=== PATIENT | female | born 1970 | race Caucasian/White ===

== ENCOUNTER 2016-11-26 19:26 | Observation (INO) | payer OTHER ==
--- NOTE | 2016-11-26 19:44 | C.PDOC ---
History Of Present Illness 46F c/o right side occipital headache constant for 2 weeks, worse w light. became worse on sunday. yesterday noted drooling from left side of mouth. today around 1pm noted numbness sensation on lips, more on the left side and then later on numbness sensation around both eyes more on the left. her brother had a stroke 1 month ago. Time Seen by Provider: 11/26/16 19:42 Chief Complaint (Nursing): Weakness/Neurological Deficit Past Medical History Vital Signs: Last Vital Signs Temp 98.2 F 11/26/16 19:42 Pulse 78 11/26/16 19:42 Resp 18 11/26/16 19:42 BP 143/96 H 11/26/16 19:42 Pulse Ox 100 11/26/16 19:42 Family History: States: Stroke (brother) - Social History Hx Alcohol Use: No Hx Substance Use: No - Immunization History Hx Tetanus Toxoid Vaccination: No Hx Influenza Vaccination: No Hx Pneumococcal Vaccination: No Review Of Systems Constitutional: Negative for: Fever, Chills Eyes: Negative for: Vision Change Cardiovascular: Negative for: Chest Pain Respiratory: Negative for: Shortness of Breath Gastrointestinal: Negative for: Nausea, Vomiting, Abdominal Pain Genitourinary: Negative for: Dysuria Musculoskeletal: Negative for: Neck Pain Neurological: Positive for: Numbness, Headache. Negative for: Weakness, Altered Mental Status Physical Exam - Physical Exam Appears: Well, Non-toxic, No Acute Distress Skin: Warm, Dry Head: Atraumatic Eye(s): bilateral: PERRL, EOMI Oral Mucosa: Moist Neck: Normal ROM Cardiovascular: Rhythm Regular, No Murmur Respiratory: Normal Breath Sounds, No Decreased Breath Sounds Extremity: No Swelling Neurological/Psych: Oriented x3, Normal Cranial Nerves, No Cerebellar Signs, Normal Motor, Normal Sensation, Other (no focal deficits) ED Course And Treatment - Laboratory Results Result Diagrams: 11/26/16 20:16 11/26/16 20:16 NIHSS Stroke Scale - Date/Time Evaluation Performed Date Performed: 11/26/16 Time Performed: 19:45 - How Severe is the Stoke Level of Consciousness: 0=Alert LOC to Questions: 0=Both comments correct LOC to commands: 0=Obeys both correctly Best Gaze: 0=Normal Visual: 0=No visual loss Facial: 0=Normal Motor Arm - Left: 0=No drift Motor Arm - Right: 0=No drift Motor Leg - Left: 0=No drift Motor Leg - Right: 0=No drift Limb Ataxia: 0=Absent Sensory: 0=Normal Best Language: 0=No aphasia Dysarthia: 0=Normal articulation Extinction & Inattention (Neglect): 0=Normal, no object Score: 0 Severity Of Stroke: 0= No Stroke rTPA Inclusion/Exclusion - Refusal of Treatment Patient Refused Treatment: No - Inclusion Criteria for Altepase Patient is 18 years or Older: Yes The Clinical Diagnosis of Ischemic Stroke That is Causing a Potentially Disabling Neurological Deficit: No Time of Onset is Well Established to be Less Than 270 Minute Before Treatment Would Begin: No Risk/Benefit Discussed With Patient/Family Member Present: No Medical Decision Making Medical Decision Making: ecg- nsr 70, nl aixs, no int, no acute ischemia EXAM: CT Head Without Intravenous Contrast CLINICAL HISTORY: 46 years old, female; Signs and symptoms; Numbness / parasthesia; Left; Additional info: Headache numbness TECHNIQUE: Axial computed tomography images of the head/brain without intravenous contrast. This CT exam was performed using one or more of the following dose reduction techniques: automated exposure control, adjustment of the mA and/or kV according to patient size, and/or use of iterative reconstruction technique. COMPARISON: No relevant prior studies available. FINDINGS: Brain: There is moderate diffuse cerebral atrophy present. The brain is otherwise unremarkable. Normal khalil-white matter differentiation is present, without acute hemorrhage, or mass. Ventricles: There are benign calcifications of the choroid plexus. Bones/joints: Unremarkable. No acute fracture. Soft tissues: Unremarkable. Sinuses: Small retention cyst present within the left maxillary sinus. Mastoid air cells: Unremarkable as visualized. No mastoid effusion. IMPRESSION: There is no acute intracranial process is seen. Mild atrophy which is slightly out of proportion to patient's age. Disposition - Disposition Disposition: HOSPITALIZED Disposition Time: 20:56 Condition: STABLE - Clinical Impression Clinical Impression: Left facial numbness
[2016-11-26] MEDS ORDERED: DiphenhydrAMINE 50 mg/ml Inj IVP STA (19:52)
[2016-11-26] MEDS ORDERED: DiphenhydrAMINE 50 mg/ml Inj ONE (20:15)
[2016-11-26 20:29] LABS: BASO # 0.1 K/uL (0.0-0.2); BASO % 0.5 % (0.0-2.0); CHLORIDE 102 mmol/L (98-107); EOS # 0.4 K/uL (0.0-0.7); EOS % 3.9 % (0.0-4.0); HEMATOCRIT 39.2 % (34.0-47.0); LYMPH # 2.5 K/uL (1.0-4.3); LYMPH % 26.2 % (20.0-40.0); MEAN CELL VOLUME 82.9 fL (81.0-99.0); MEAN CORPUSCULAR HEMOGLOBIN 27.3 pg (27.0-31.0); MEAN PLATELET VOLUME 8.4 fL (7.2-11.7); MONO # 0.6 K/uL (0.0-0.8); MONO % 6.1 % (0.0-10.0); NRBC % 0.1 % (0.0-2.0); POTASSIUM 3.4 mmol/L (3.6-5.2); RED CELL DISTRIBUTION WIDTH 14.9 % (11.5-14.5); SODIUM 138 mmol/L (132-148); WHITE BLOOD COUNT 9.5 K/uL (4.8-10.8)
[2016-11-26 20:31] LABS: ALB/GLOB RATIO 1.2 (1.0-2.1); ALKALINE PHOSPHATASE 117 U/L (38-126); AST/SGOT 25 U/L (14-36); BILIRUBIN,TOTAL 0.6 mg/dL (0.2-1.3); BLOOD UREA NITROGEN 14 mg/dL (7-17); CARBON DIOXIDE 26 mmol/L (22-30); CHOLESTEROL 200 mg/dL (0-199); GFR AFRICAN-AMERICAN > 60; TOTAL PROTEIN 7.3 g/dL (6.3-8.3)
[2016-11-26 20:32] LABS: ALT/SGPT 38 U/L (9-52); GLUCOSE,RANDOM 101 mg/dL (65-105)
[2016-11-26 20:34] LABS: URINE BACTERIA RARE (<OCC); URINE BILIRUBIN NEGATIVE (NEGATIVE); URINE BLOOD NEGATIVE (NEGATIVE); URINE COLOR Straw (YELLOW); URINE GLUCOSE (UA) NORMAL (Normal); URINE KETONE NEGATIVE (NEGATIVE); URINE LEUKOCYTE ESTERASE 1+ Leu/uL (Negative); URINE PROTEIN NEGATIVE (NEGATIVE); URINE UROBILINOGEN NORMAL mg/dL (0.2-1.0); WBC URINE 1 /hpf (0-5)
[2016-11-26 20:36] LABS: INR 0.9
[2016-11-26 20:49] LABS: CALCIUM 7.7 mg/dl (8.6-10.4)
--- NOTE | 2016-11-27 08:23 | CT ---
PROCEDURE: CT HEAD WITHOUT CONTRAST. HISTORY: headache numbness COMPARISON: None available. TECHNIQUE: Axial computed tomography images were obtained through the head/brain without intravenous contrast. Radiation dose: Total exam DLP = 869.92 mGy-cm. This CT exam was performed using one or more of the following dose reduction techniques: Automated exposure control, adjustment of the mA and/or kV according to patient size, and/or use of iterative reconstruction technique. FINDINGS: HEMORRHAGE: No intracranial hemorrhage. BRAIN: No mass effect or edema. Mild frontal atrophy, slightly disproportionate to patient age. No evidence of acute infarct. VENTRICLES: Unremarkable. No hydrocephalus. CALVARIUM: Unremarkable. PARANASAL SINUSES: Left maxillary retention cyst/polyp. MASTOID AIR CELLS: Unremarkable as visualized. No inflammatory changes. OTHER FINDINGS: None. IMPRESSION: No intracranial mass, hemorrhage or evidence of acute infarct. Mild frontal atrophy disproportionate to patient age. Left maxillary retention cyst/polyp. Preliminary interpretation of this examination was reported by [facility] at 8:11 p.m. on 11/26/2016. There is concurrence of this report with the preliminary interpretation.
--- NOTE | 2016-11-27 08:36 | CP.PCM.HP ---
History of Present Illness - History of Present Illness History of Present Illness: 46-year-old female patient presented to the ER with complaint of right-sided occipital headache constant for 2 weeks, worse with light. Became worse on Sunday. Yesterday notes drooling from left side of mouth. Today around 1 PM noted numbness sensation all lips, more on the left side and the O numbness sensation on both eyes on the left. Her brother had a stroke 1 month ago. Present on Admission - Present on Admission Any Indicators Present on Admission: No Past Patient History - Past Social History Smoking Status: Never Smoked - PSYCHIATRIC Hx Substance Use: No Meds Home Medications: Home Medication List Medication Instructions Recorded Confirmed Type Acetaminophen [Tylenol 325mg tab] 650 mg PO Q6 PRN tab 11/28/16 Rx Methylprednisolone [Medrol Dose 4 mg PO DAILY #21 mg 11/28/16 Rx Pack (21 tabs)] Rosuvastatin Calcium [Crestor] 10 mg PO HS tab 11/28/16 Rx Valacyclovir HCl [Valacyclovir] 500 mg PO BID 14 Days 11/28/16 Rx Allergies/Adverse Reactions: Allergies Allergy/AdvReac Type Severity Reaction Status Date / Time No Known Allergies Allergy Verified 11/26/16 19:46 Physical Exam - Constitutional Appears: Well - Head Exam Head Exam: ATRAUMATIC, NORMAL INSPECTION, NORMOCEPHALIC - Eye Exam Eye Exam: EOMI, Normal appearance, PERRL Pupil Exam: NORMAL ACCOMODATION, PERRL - ENT Exam ENT Exam: Mucous Membranes Moist, Normal Exam - Neck Exam Neck exam: Positive for: Normal Inspection - Respiratory Exam Respiratory Exam: Decreased Breath Sounds - Cardiovascular Exam Cardiovascular Exam: REGULAR RHYTHM, +S1, +S2 - GI/Abdominal Exam GI & Abdominal Exam: Diminished Bowel Sounds, Soft - Rectal Exam Rectal Exam: Deferred Results - Vital Signs Recent Vital Signs: Last Vital Signs Temp 98.1 F 11/27/16 05:21 Pulse 64 11/27/16 05:21 Resp 16 11/27/16 05:21 BP 108/68 11/27/16 05:21 Pulse Ox 96 11/27/16 05:21 - Labs Result Diagrams: 11/28/16 13:51 11/28/16 13:51 Assessment & Plan (1) Left facial numbness Status: Acute (2) Otitis externa of left ear Status: Acute - Assessment and Plan (Free Text) Plan: protonix lovenox asp and cresotr neur owrk upas per dr. darling
[2016-11-27] MEDS ORDERED: Potassium Chloride 10 mEq ER Tab PO SCH (08:45)
--- NOTE | 2016-11-27 08:53 | RAD ---
HISTORY: numbness COMPARISON: No prior. FINDINGS: LUNGS: No active pulmonary disease. PLEURA: No significant pleural effusion identified, no pneumothorax apparent. CARDIOVASCULAR: Normal. OSSEOUS STRUCTURES: No significant abnormalities. VISUALIZED UPPER ABDOMEN: Normal. OTHER FINDINGS: None. IMPRESSION: No active disease.
[2016-11-27] MEDS ORDERED: Gadodiamide 287 MG/ML VIAL (15ML) IV ONE (10:51)
[2016-11-27] MEDS: Pantoprazole 40 mg EC Tab PO SCH (11:45)
[2016-11-27] MEDS: Enoxaparin 40 mg Syringe SC SCH (11:45)
--- NOTE | 2016-11-27 12:50 | MRI ---
PROCEDURE: MRI BRAIN WITH AND WITHOUT CONTRAST HISTORY: LEFT FACIAL NUMBNESS COMPARISON: None. TECHNIQUE: Multiplanar, multisequence MR images of the brain were obtained with and without intravenous contrast enhancement. FINDINGS: HEMORRHAGE: None DWI: No evidence of an acute or early subacute infarction. BRAIN PARENCHYMA: No mass,mass effect or edema. There is a small nonspecific focus hyperintense T2 and FLAIR signal seen at the right frontal lobe image 6 series 6 may represent chronic microvascular ischemic disease. ENHANCEMENT: No abnormal intracranial enhancement. VENTRICLES: Unremarkable. No hydrocephalus. CRANIUM: Unremarkable. ORBITS: Grossly unremarkable. PARANASAL SINUSES/MASTOIDS: 2.8 x 1.6 centimeter mucosal retention cyst at the left maxillary sinus. VASCULAR SYSTEM: Skull base flow voids intact. OTHER FINDINGS: None . IMPRESSION: No evidence of acute infarct. No evidence of mass lesion abnormal enhancement mass effect or midline shift.
--- NOTE | 2016-11-27 14:31 | CARD ---
APPROVED REPORT EKG Measurement Heart [id number] <Conclusion> Normal sinus rhythm Normal ECG
[2016-11-27 16:22] VITALS: RESP 20
[2016-11-28] MEDS ORDERED: Potassium Chloride 20 mEq ER Tab PO SCH (08:00)
[2016-11-28] MEDS: Pantoprazole 40 mg EC Tab PO SCH (09:34)
[2016-11-28] MEDS: Enoxaparin 40 mg Syringe SC SCH (09:34)
--- NOTE | 2016-11-28 11:42 | CP.PCM.PN ---
Subjective - Date & Time of Evaluation Date of Evaluation: 11/28/16 Time of Evaluation: 10:00 - Subjective Subjective: clinically same Objective - Vital Signs/Intake and Output Vital Signs (last 24 hours): Temp Pulse Resp BP Pulse Ox 97.7 F 68 20 136/79 98 11/28/16 08:08 11/28/16 08:08 11/28/16 08:08 11/28/16 08:08 11/28/16 08:08 - Medications Medications: Current Medications Acetaminophen (Tylenol 325mg Tab) 650 mg PO Q6 PRN PRN Reason: Pain, moderate (4-7) Last Admin: 11/28/16 09:33 Dose: 650 mg Aspirin (Aspirin) 325 mg PO DAILY [facility] Last Admin: 11/28/16 09:34 Dose: 325 mg Enoxaparin Sodium (Lovenox) 40 mg SC DAILY [facility] Last Admin: 11/28/16 09:34 Dose: 40 mg Pantoprazole Sodium (Protonix Ec Tab) 40 mg PO DAILY [facility] Last Admin: 11/28/16 09:34 Dose: 40 mg Potassium Chloride (K-Dur 20 Meq Er Tab) 40 meq PO BRK [facility] Last Admin: 11/28/16 08:47 Dose: 40 meq Rosuvastatin Calcium (Crestor) 10 mg PO HS ROJAS Temazepam (Restoril) 15 mg PO HS PRN PRN Reason: Insomnia Last Admin: 11/27/16 22:28 Dose: 15 mg Valacyclovir HCl (Valtrex) 500 mg PO BID [facility] Stop: 12/12/16 21:00 Last Admin: 11/28/16 09:34 Dose: 500 mg - Labs Labs: PT 10.0 SECONDS (9.7-12.2) 11/26/16 20:16 INR 0.9 11/26/16 20:16 APTT 30 SECONDS (21-34) 11/26/16 20:16 - Constitutional Appears: Well - Head Exam Head Exam: ATRAUMATIC, NORMAL INSPECTION, NORMOCEPHALIC - Eye Exam Eye Exam: EOMI, Normal appearance, PERRL Pupil Exam: NORMAL ACCOMODATION, PERRL - ENT Exam ENT Exam: Mucous Membranes Moist, Normal Exam - Neck Exam Neck Exam: Full ROM, Normal Inspection. absent: Lymphadenopathy - Respiratory Exam Respiratory Exam: Decreased Breath Sounds - Cardiovascular Exam Cardiovascular Exam: REGULAR RHYTHM, +S1, +S2 - GI/Abdominal Exam GI & Abdominal Exam: Soft, Diminished Bowel Sounds - Rectal Exam Rectal Exam: Deferred Assessment and Plan (1) Left facial numbness Status: Acute (2) Otitis externa of left ear Status: Acute - Assessment and Plan (Free Text) Plan: CT head negative MRI head negative Patient can be discharged today Continue Medrol, Crestor, antiviral Follow-up with me and Dr. Jacques the office in 3-5 days
[2016-11-28 13:57] LABS: BASO # 0.1 K/uL (0.0-0.2); BASO % 0.6 % (0.0-2.0); EOS # 0.2 K/uL (0.0-0.7); EOS % 2.2 % (0.0-4.0); HEMATOCRIT 40.2 % (34.0-47.0); LYMPH # 2.7 K/uL (1.0-4.3); LYMPH % 25.8 % (20.0-40.0); MEAN CELL VOLUME 82.1 fL (81.0-99.0); MEAN CORPUSCULAR HEMOGLOBIN 27.6 pg (27.0-31.0); MEAN CORPUSCULAR HGB CONC 33.6 g/dL (33.0-37.0); MEAN PLATELET VOLUME 8.4 fL (7.2-11.7); MONO # 0.6 K/uL (0.0-0.8); MONO % 5.8 % (0.0-10.0); RED CELL DISTRIBUTION WIDTH 14.9 % (11.5-14.5); WHITE BLOOD COUNT 10.5 K/uL (4.8-10.8)
[2016-11-28 14:14] LABS: CHLORIDE 102 mmol/L (98-107); SODIUM 136 mmol/L (132-148)
[2016-11-28 14:15] LABS: POTASSIUM 3.9 mmol/L (3.6-5.2)
[2016-11-28 14:17] LABS: ALB/GLOB RATIO 1.2 (1.0-2.1); ALKALINE PHOSPHATASE 108 U/L (38-126); ALT/SGPT 49 U/L (9-52); AST/SGOT 33 U/L (14-36); BILIRUBIN,TOTAL 0.9 mg/dL (0.2-1.3); BLOOD UREA NITROGEN 10 mg/dL (7-17); CARBON DIOXIDE 25 mmol/L (22-30); GFR AFRICAN-AMERICAN > 60; GLUCOSE,RANDOM 89 mg/dL (65-105); TOTAL PROTEIN 7.1 g/dL (6.3-8.3)
[2016-11-28 14:18] LABS: CALCIUM 8.4 mg/dl (8.6-10.4)
[2016-11-28 17:17] VITALS: BP 136/88; PULSE 77; TEMP 97.4; O2SAT 97
--- NOTE | 2016-11-28 17:19 | CP.PCM.PN ---
Subjective - Date & Time of Evaluation Date of Evaluation: 11/28/16 Time of Evaluation: 17:19 - Subjective Subjective: 46 Y/O FEMALE SEEN AND EXAMINED BY DR Yarely CUNHA TODAY ADMITTED FOR OCCIPITAL HEADACHE FOR 2 WEEKS, LEFT SIDE OF NUMBNESS CT HEAD - NEGATIVE, MRI HEAD- NEGATIVE PT CLEARED FOR D/C BY DR CUNHA AND DR CARMICHAEL MEDROL DOSE PACK, CRESTOR, AND ANTIVIRAL RX PER DR CARMICHAEL FOLLOW UP WITH DR Yarely CUNHA IN THE OFFICE IN 3-5 DAYS FOLLOW UP WITH DR CARMICHAEL IN THE OFFICE IN 3-5 DAYS Objective - Vital Signs/Intake and Output Vital Signs (last 24 hours): Temp Pulse Resp BP Pulse Ox 97.4 F L 77 20 136/88 97 11/28/16 16:00 11/28/16 16:00 11/28/16 16:00 11/28/16 16:00 11/28/16 16:00 - Medications Medications: Current Medications Acetaminophen (Tylenol 325mg Tab) 650 mg PO Q6 PRN PRN Reason: Pain, moderate (4-7) Last Admin: 11/28/16 09:33 Dose: 650 mg Aspirin (Aspirin) 325 mg PO DAILY [facility] Last Admin: 11/28/16 09:34 Dose: 325 mg Enoxaparin Sodium (Lovenox) 40 mg SC DAILY [facility] Last Admin: 11/28/16 09:34 Dose: 40 mg Pantoprazole Sodium (Protonix Ec Tab) 40 mg PO DAILY [facility] Last Admin: 11/28/16 09:34 Dose: 40 mg Potassium Chloride (K-Dur 20 Meq Er Tab) 40 meq PO BRK [facility] Last Admin: 11/28/16 08:47 Dose: 40 meq Prednisone (Prednisone Tab) 40 mg PO DAILY [facility] Last Admin: 11/28/16 13:14 Dose: 40 mg Rosuvastatin Calcium (Crestor) 10 mg PO HS ROJAS Temazepam (Restoril) 15 mg PO HS PRN PRN Reason: Insomnia Last Admin: 11/27/16 22:28 Dose: 15 mg Valacyclovir HCl (Valtrex) 500 mg PO BID [facility] Stop: 12/12/16 21:00 Last Admin: 11/28/16 09:34 Dose: 500 mg - Labs Labs: 11/28/16 13:51 11/28/16 13:51 PT 10.0 SECONDS (9.7-12.2) 11/26/16 20:16 INR 0.9 11/26/16 20:16 APTT 30 SECONDS (21-34) 11/26/16 20:16
--- NOTE | 2016-11-28 21:03 | CON ---
DATE: 11/28/2016 ATTENDING PHYSICIAN: Chad Webber MD PATIENT'S ROOM NUMBER: 560, bed 1. REASON FOR CONSULTATION: Facial weakness. CHIEF COMPLAINT: The patient was brought into [facility] Emergency Room with a history of woke up with right-sided parietal headache with facial weakness since Sunday. Since his symptoms are not improving and also weakness of the right side of the face, he decided to come to the hospital for further evaluation. From neurological point of view, I was called in to evaluate her for further management. HISTORY OF PRESENT ILLNESS: The patient is a 46-year-old right-handed female, no pertinent past medical history, presenting woke up with right facial weakness. The weakness also associating with the right parietal occipital region headache. Not associated with nausea or vomiting. No hypersensitivity to sound and no taste discomfort or dysfunction. No history of double vision. No history of visual disturbances except when she concentrates on certain objects or when she reads she gets pain in her right eye. No history of recent travel. No history of recent infection. No history of vaccination. PAST MEDICAL HISTORY: Unremarkable. PERSONAL HISTORY: Denies smoking or alcohol use. ALLERGIES: No known allergies. REVIEW OF SYSTEMS: As per H and P. MEDICATIONS: Aspirin, Crestor, potassium supplement, Lovenox, prednisone, Protonix, Restoril, Tylenol,Valtrex. PHYSICAL EXAMINATION: VITAL SIGNS: Blood pressure 136/88, mean arterial pressure 104, respiratory rate 16, temperature afebrile. NECK: Supple. No carotid bruit. HEART: Sounds are regular. CHEST: Fair air entry. EXTREMITIES: No edema in legs. NEUROLOGIC EXAMINATION: MENTAL STATUS: She is awake, alert, oriented to person, place, and time. Speech is clear. Naming, repetition, fluency, comprehension all within normal. CRANIAL NERVES: Visual wells intact. Pupils react to light. Extraocular movement normal. No nystagmus. No facial sensory deficits. Significant facial asymmetry manifesting with right lower motor neuron dysfunction the VII nerve noted which manifesting as decreased blinking and decreased frowning of the right side. She puffing on both sides. She was not able to whistle and tongue was deviated to her left side. She was able to swallow. No bulbar dysfunction. NECK: Supple. No carotid bruit. HEART: Sounds regular. CHEST: Fair air entry. EXTREMITIES: No edema in legs NEUROLOGIC: MENTAL STATUS: She is awake, alert, oriented to person, place, and time. Speech is clear. Naming, repetition, fluency, comprehension all within normal. CRANIAL NERVES: Negative. DEEP TENDON REFLEXES: Biceps, brachialis, triceps 2+ on either side. Ankles are trace. Plantars are downgoing. COORDINATION: [id number] test is intact. SENSORY: Grossly Normal Romberg sign negative. Tandem is fair walking. 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 This is probably iatrogenic in source. However, the other possible causes of intracranial pathology including a space occupying lesion or demyelinating disease and infection versus inflammatory process should be worked up. Further workup including MRI of the brain shows mild periventricular ischemic changes noted. No CP angle mass noted. EKG normal sinus rhythm. BLOOD WORKUP: Shows WBC 10.5, hemoglobin 13.5, hematocrit 40.2, platelet 294. PT 10.0, INR 0.9, PTT 30. Sodium 136, potassium 3.9, chloride 102, bicarbonate 24, BUN 10, creatinine 0.5, GFR more than 60, glucose 89, hemoglobin A1c 5.3, calcium 8.4. Urinalysis shows 1+ leukocytes, otherwise normal. The patient's triglyceride is 425. Cholesterol is 200, LDL 109, HDL 47. RECOMMENDATIONS: 1. Statin should be given with fenofibrate. 2. Aspirin can be taken for 6 months and then can be discontinued. 3. The patient should have a short course of steroids with Valtrex for prophylactic measures and bring down the duration of the suffering. In the meantime, blood tests should be worked up including Lyme's, varicella zoster and sarcoidosis. The patient's condition has been well discussed with her spouse, resident as well as the attending physician. The patient is also advised to use Artificial Tears on both eyes every 2 hours while she is awake and eye patch can be placed on her right eye when she is sleeping. The patient also recommended to have physical therapy including galvanic stimulation of the facial nerve on her right side. If medically stable , the patient can be discharged and can follow with me as an outpatient. Randall Jacques MD cc: [id number] TT: 11/28/2016 21:02:10 Confirmation # [id number] Dictation # [id number] taniya BARBOSA
== END 2016-11-28 18:45 | disposition home or self-care (01) ==
LOC: C.ER 19:26 → C.9E 21:57 → C.5T 11-27 08:17
PROVIDERS: ADMIT Internal Medicine Nephrology; ATTEND Internal Medicine Nephrology
DX: R29.810 Facial weakness (principal); Z82.3 Family history of stroke; R51 Headache
CPT/HCPCS: 36415; 70450; 70553; 71010; 80053; 80061; 81001; 82948; 83036; 84484; 84703; 85025; 85610; 85730; 86850; 86900; 93005; 96374; 96375; 99285; A9579; G0378; J1200; J1650; J2765

== ENCOUNTER 2017-07-16 10:15 | Emergency (ER) | payer OTHER ==
[2017-07-16 10:33] VITALS: RESP 18; O2SAT 99
[2017-07-16] MEDS ORDERED: Sodium Chloride 0.9% 1,000 ML IV ONE (10:56)
--- NOTE | 2017-07-16 10:58 | C.PDOC ---
History Of Present Illness 47 year old female presents to the ED for evaluation of vaginal bleeding which has been intermittent for the past month. Patient has been using multiple pads per day. She notes she usually experiences heavy menstrual periods. Patient states she currently feels tired and has no other complaints at this time. Time Seen by Provider: 07/16/17 10:45 Chief Complaint (Nursing): Female Genitourinary History Per: Patient History/Exam Limitations: no limitations Onset/Duration Of Symptoms: Intermittent Episodes (1 month ) Current Symptoms Are (Timing): Still Present Associated Symptoms: denies: Fever, Chills, Urinary Symptoms Additional History Per: Patient Abnormal Vaginal Bleeding: Yes Past Medical History Reviewed: Historical Data, Nursing Documentation, Vital Signs Vital Signs: Last Vital Signs Temp 97.7 F 07/16/17 13:50 Pulse 66 07/16/17 13:50 Resp 18 07/16/17 13:50 BP 107/70 07/16/17 13:50 Pulse Ox 99 07/16/17 14:37 - Medical History PMH: Gall Bladder Disease Denies: Chronic Kidney Disease Surgical History: Appendectomy Family History: States: Stroke (brother) - Social History Hx Alcohol Use: No Hx Substance Use: No - Immunization History Hx Tetanus Toxoid Vaccination: No Hx Influenza Vaccination: No Hx Pneumococcal Vaccination: No Review Of Systems Constitutional: Negative for: Fever, Chills Gastrointestinal: Negative for: Nausea, Vomiting, Abdominal Pain Genitourinary: Positive for: Vaginal Bleeding Physical Exam - Physical Exam Appears: Non-toxic, No Acute Distress Skin: Warm, Dry, Pale (mild) Head: Atraumatic, Normacephalic Eye(s): bilateral: Normal Inspection Oral Mucosa: Moist Neck: Supple Chest: Symmetrical, No Deformity, No Tenderness Cardiovascular: Rhythm Regular, No Murmur Respiratory: Normal Breath Sounds, No Rales, No Rhonchi, No Wheezing Gastrointestinal/Abdominal: Soft, No Tenderness, No Guarding, No Rebound Extremity: Normal ROM, Capillary Refill (less than 2 seconds ) Neurological/Psych: Oriented x3, Normal Speech, Normal Cognition Gait: Steady ED Course And Treatment - Laboratory Results Result Diagrams: 07/16/17 11:19 07/16/17 11:19 O2 Sat by Pulse Oximetry: 99 (on RA) Pulse Ox Interpretation: Normal Medical Decision Making Medical Decision Making: Progress: Bloodwork, urinalysis, transvaginal US ordered. IV Fluids administered. Patient was offered blood transfusion, after she was found to be more anemic than baseline. Patient declines transfusion at this time and is understands to return to the ED if symptoms persist or worsen. Disposition - Disposition Referrals: [facility] [Outside] [facility] [Outside] Mena Goins MD [Staff Provider] - Disposition: HOME/ ROUTINE Disposition Time: 15:31 Condition: STABLE Additional Instructions: please follow up with specialist. lola vargas declining admission to the hospital and blood transfuion. return to er with any worsening symptoms or concerns. Instructions: Dysfunctional Uterine Bleeding (ED) Forms: [employer] (Korean) - Clinical Impression Clinical Impression: Anemia, Vaginal bleeding - Scribe Statement The provider has reviewed the documentation as recorded by the Scribe (Saida Webber) Provider Attestation: All medical record entries made by the Scribe were at my direction and personally dictated by me. I have reviewed the chart and agree that the record accurately reflects my personal performance of the history, physical exam, medical decision making, and the department course for this patient. I have also personally directed, reviewed, and agree with the discharge instructions and disposition.
[2017-07-16 11:29] LABS: BASO % 0.4 % (0.0-2.0); EOS # 0.2 K/uL (0.0-0.7); EOS % 3.3 % (0.0-4.0); LYMPH # 1.7 K/uL (1.0-4.3); LYMPH % 23.4 % (20.0-40.0); MEAN CORPUSCULAR HEMOGLOBIN 26.3 pg (27.0-31.0); MEAN CORPUSCULAR HGB CONC 33.6 g/dL (33.0-37.0); MEAN PLATELET VOLUME 8.2 fL (7.2-11.7); MONO # 0.4 K/uL (0.0-0.8); MONO % 5.2 % (0.0-10.0); NEUT # 4.9 K/uL (1.8-7.0); NEUT % 67.7 % (50.0-75.0); RBC 3.88 Mil/uL (3.80-5.20); RED CELL DISTRIBUTION WIDTH 21.1 % (11.5-14.5); WHITE BLOOD COUNT 7.2 K/uL (4.8-10.8)
[2017-07-16 11:30] LABS: HEMOGLOBIN 10.2 g/dL (11.0-16.0)
[2017-07-16 11:31] LABS: MEAN CELL VOLUME 78.3 fL (81.0-99.0)
[2017-07-16 11:40] LABS: ALB/GLOB RATIO 1.2 (1.0-2.1); ALBUMIN 3.6 g/dL (3.5-5.0); ALT/SGPT 101 U/L (9-52); AST/SGOT 44 U/L (14-36); BLOOD UREA NITROGEN 12 mg/dL (7-17); CALCIUM 7.9 mg/dl (8.6-10.4); GFR AFRICAN-AMERICAN > 60; GFR NON-AFRICAN AMERICAN > 60
[2017-07-16 12:20] LABS: HCG,QUALITATIVE URINE NEGATIVE (NEGATIVE)
[2017-07-16 12:24] LABS: URINE BILIRUBIN NEGATIVE (NEGATIVE); URINE BLOOD 3+ (NEGATIVE); URINE CLARITY Hazy (Clear); URINE COLOR Red (YELLOW); URINE GLUCOSE (UA) NORMAL (Normal); URINE LEUKOCYTE ESTERASE TRACE Leu/uL (Negative); URINE NITRATE NEGATIVE (NEGATIVE); URINE PROTEIN 2+ mg/dL (NEGATIVE); URINE UROBILINOGEN NORMAL mg/dL (0.2-1.0)
--- NOTE | 2017-07-16 12:37 | US ---
Pelvic ultrasound History: Vaginal bleeding. Comparison: None available. Technique: Real-time sonography was performed through the pelvis. Findings: Uterus: 11.8 x 5.5 x 6.8 centimeters. Heterogeneous echotexture. Anteverted. Thickened heterogeneous endometrium measuring up to 1.9 centimeters. No free fluid in the pelvic cul-de-sac. Right ovary: 4.3 x 2.6 x 2.9 centimeters. Normal flow. Hypoechoic cyst measuring 3.0 x 2.2 x 2.5 centimeters. Left ovary: 3.4 x 2.3 x 2.9 centimeters. Normal flow. Hypoechoic cyst measuring 2.2 x 1.3 x 1.1 centimeters. Prominent nabothian cysts noted at the level of the cervix. Impression: Thickened heterogeneous endometrium measuring up to 1.9 centimeters. Clinical correlation. Bilateral ovarian cysts. Nabothian cysts noted at the level cervix.
[2017-07-16 13:59] VITALS: BP 107/70; PULSE 66; TEMP 97.7
== END 2017-07-16 13:50 | disposition home or self-care (01) ==
LOC: C.ER 10:15
DX: D64.9 Anemia, unspecified (principal); N93.9 Abnormal uterine and vaginal bleeding, unspecified

== ENCOUNTER 2018-08-21 13:23 | Outpatient (CLI) | payer OTHER | END 2018-08-21 13:24 | disposition home or self-care (01) | LOC: C.MRIC 13:23 ==